=== PATIENT | male | born 1995 | race Two or more races ===

== ENCOUNTER 2021-04-20 06:56 | Emergency (ER) | payer SELFPAY ==
[~2021-04-20] VITALS: Ht 177.8 cm; Wt 117.9 kg
[2021-04-20 07:29] VITALS: BP 144/79
== END 2021-04-20 08:30 | disposition home or self-care (01) ==
LOC: ER 06:56
DX: S91.311A Laceration without foreign body, right foot, initial encounter (principal); R22.41 Localized swelling, mass and lump, right lower limb; W26.8XXA Contact with other sharp object(s), not elsewhere classified, initial encounter; Y93.I9 Activity, other involving external motion; Y92.89 Other specified places as the place of occurrence of the external cause; Y99.8 Other external cause status